=== PATIENT | female | born 1950 | race Caucasian/White ===

== ENCOUNTER 2023-08-27 05:28 | Emergency (ER) | payer MEDICARE, OTHER, SELFPAY ==
[2023-08-27] VITALS (30 sets, daily range): BP systolic 101–120; BP diastolic 51–60; PULSE 84–105; RESP 15–26; TEMP 37.6–38.2; O2SAT 93–98
--- NOTE | 2023-08-27 05:39 | DI.RAD.S_ITS ---
PROCEDURE: XR CHEST 1V INDICATIONS: cough, fever TECHNIQUE: One view of the chest was acquired. COMPARISON: None. FINDINGS: Surgical changes and devices: None. Lungs and pleura: Bibasilar atelectasis. No focal consolidation. No pleural effusions or pneumothorax. Mediastinum: Mediastinal contours appear normal. Heart size is normal. Bones and chest wall: No suspicious bony lesions. Overlying soft tissues appear unremarkable. IMPRESSION: No acute cardiopulmonary disease. 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 Dictated by: Marilee Aaron M.D. on 08/27/2023 at 7:55 Approved by: Marilee Aaron M.D. on 08/27/2023 at 7:56
--- NOTE | 2023-08-27 05:40 | ED_ITS ---
HPI - General Adult <Marcos Pompa DO - Last Filed: 08/27/23 23:25> General Chief complaint: Fever Stated complaint: chills, fever 102.5 Time Seen by Provider: 08/27/23 05:30 History of Present Illness HPI narrative: 72-year-old female nonsmoker with history of stroke and a relatively recent right total knee presents with a few weeks of episodic fever and chills. She states that more specifically she is been relatively persistently febrile for the past few days with occasional chills. She denies runny nose, sore throat but has had some cough and burning in her lungs. She denies any significant shortness of breath. She is had no chest pain, nausea, vomiting or diarrhea. She denies dysuria, frequency or urgency. She denies any pain and states that her knee feels great, denying any swelling, drainage or abnormal redness. Related Data Home Medications Medication Instructions Recorded Confirmed atorvastatin 40 mg tablet 40 mg PO DAILY 08/27/23 08/27/23 Previous Rx's Medication Instructions Recorded cephalexin 500 mg capsule 500 mg PO BID 7 days #14 caps 08/27/23 ondansetron 4 mg disintegrating 4 mg PO Q6H PRN nausea and 08/27/23 tablet vomiting #14 tabs Allergies Allergy/AdvReac Type Severity Reaction Status Date / Time amoxicillin Allergy Rash Verified 08/27/23 06:10 clavulanic acid Allergy Verified 08/27/23 06:07 [From Augmentin] codeine Allergy Nausea Verified 08/27/23 06:10 doxycycline Allergy Hives Verified 08/27/23 06:10 levofloxacin Allergy Joint Pain Verified 08/27/23 06:10 Sulfa (Sulfonamide Allergy ITCHING Verified 08/27/23 06:10 Antibiotics) Review of Systems <Marcos Pompa DO - Last Filed: 08/27/23 23:25> Review of Systems Narrative: GENERAL: See HPI HEENT: See HPI RESPIRATORY: See HPI CARDIOVASCULAR: Denies chest pain, palpitations, orthopnea, edema, GASTROINTESTINAL: Denies nausea, vomiting, abdominal pain, diarrhea, constipation, melena. : Denies dysuria, frequency, incontinence, hematuria, urinary retention. MUSCULOSKELETAL: denies weakness, joint pain, or bony pain SKIN: Denies rash, skin lesions, or other NEUROLOGIC: Denies weakness, headache, numbness, change in speech, confusion, seizures, incoordination. PSYCHIATRIC: No concerning psychosocial issues. 12 point review of systems is negative except for those stated above Patient History <Marcos Pompa DO - Last Filed: 08/27/23 23:25> Medical History (Updated 08/27/23 @ 11:28 by Tobin Lr DO) CVA (cerebral vascular accident) Surgical History (Updated 08/27/23 @ 11:28 by Tobin Lr DO) H/O: knee surgery Social History Smoking Status: Never smoker substance use type: does not use Exam <Marcos Pompa DO - Last Filed: 08/27/23 23:25> Narrative Exam Narrative: GENERAL: [72] year old patient appears stated age. Well-developed patient, in mild distress. HEAD: Atraumatic. Normocephalic. EYES: Pupils equal round and reactive. Extraocular motions intact. No scleral icterus. No injection or drainage. ENT: Nose without bleeding, purulent drainage. Throat without erythema, tonsillar hypertrophy or exudate. Airway patent. NECK: Trachea midline. Non tender CARDIOVASCULAR: Regular rate and rhythm without murmurs, gallops, or rubs. RESPIRATORY: Clear to auscultation. Breath sounds equal bilaterally. No wheezes, rales, or rhonchi. GASTROINTESTINAL: Abdomen soft, non-tender, nondistended. EXTREMITIES: No edema or joint tenderness. Incision on right knee clean, dry and intact, no swelling, redness, warmth BACK: Nontender without deformity or crepitance. No flank tenderness. NEURO: AOx3. SKIN: No rash or erythema of visible areas Initial Vital Signs Initial Vital Signs: Vital Signs Pulse Rate 105 H 08/27/23 05:40 Respiratory Rate 15 08/27/23 05:40 Pulse Oximetry 94 08/27/23 05:40 <Samuel Shelton DO - Last Filed: 08/27/23 11:09> Initial Vital Signs Initial Vital Signs: Vital Signs Pulse Rate 105 H 08/27/23 05:40 Respiratory Rate 15 08/27/23 05:40 Pulse Oximetry 94 08/27/23 05:40 Course <Marcos Pompa DO - Last Filed: 08/27/23 23:25> Orders Ordered: Discontinued Medications Acetaminophen (Acetaminophen 325 Mg Tablet) 975 mg PO NOW ONE Stop: 08/27/23 05:45 Last Admin: 08/27/23 05:53 Dose: 975 mg Documented By: Sodium Chloride (Normal Saline 0.9%) 1,000 mls @ 1,000 mls/hr IV BOLUS ONE Stop: 08/27/23 06:37 Last Infusion: 08/27/23 06:05 Dose: 0 mls/hr Documented By: Admin: 08/27/23 05:53 Dose: 1,000 mls/hr Documented By: Sodium Chloride (Normal Saline 0.9%) 1,875.15 mls @ 625.05 mls/hr 30 ml/kg infuse over 3 hr (1875.15 ml) IV NOW ONE Stop: 08/27/23 09:02 Last Infusion: 08/27/23 09:37 Dose: Infused Documented By: Admin: 08/27/23 06:09 Dose: 625.05 mls/hr Documented By: Ceftriaxone Sodium 2,000 mg/ (Sodium Chloride) 100 mls @ 200 mls/hr IV NOW ONE Stop: 08/27/23 06:09 Last Infusion: 08/27/23 07:08 Dose: Infused Documented By: Admin: 08/27/23 06:20 Dose: 200 mls/hr Documented By: Azithromycin 500 mg/ Dextrose 250 mls @ 250 mls/hr IV NOW ONE Stop: 08/27/23 07:18 Last Infusion: 08/27/23 09:06 Dose: Infused Documented By: AMAidan Admin: 08/27/23 07:42 Dose: 250 mls/hr Documented By: LEA Vital Signs Vital signs: Vital Signs - 8 hr 08/27/23 05:40 08/27/23 05:44 08/27/23 05:53 Temperature 100.7 F H 100.7 F H Pulse Rate 105 H 104 H Respiratory Rate 15 18 Blood Pressure 120/56 L Pulse Oximetry 94 98 Oxygen Delivery Method Room Air 08/27/23 06:00 08/27/23 06:23 08/27/23 06:23 Temperature Pulse Rate 100 H 99 H Respiratory Rate Blood Pressure 108/53 L Pulse Oximetry 97 97 Oxygen Delivery Method Room Air 08/27/23 06:30 08/27/23 06:30 08/27/23 06:52 Temperature Pulse Rate 96 H Respiratory Rate 21 Blood Pressure 101/51 L 105/52 L Pulse Oximetry 96 Oxygen Delivery Method 08/27/23 06:52 08/27/23 06:55 08/27/23 07:00 Temperature 99.7 F H Pulse Rate 93 H 87 Respiratory Rate 20 Blood Pressure Pulse Oximetry 94 93 Oxygen Delivery Method Room Air Room Air 08/27/23 07:00 08/27/23 07:30 08/27/23 07:30 Temperature Pulse Rate 89 Respiratory Rate 26 H Blood Pressure 105/53 L 113/56 L Pulse Oximetry 94 Oxygen Delivery Method 08/27/23 07:45 08/27/23 07:45 08/27/23 08:00 Temperature Pulse Rate 96 H 94 H Respiratory Rate 23 Blood Pressure 110/56 L Pulse Oximetry 95 95 Oxygen Delivery Method 08/27/23 08:00 08/27/23 08:15 08/27/23 08:15 Temperature Pulse Rate 91 H Respiratory Rate 20 Blood Pressure 109/52 L 109/54 L Pulse Oximetry 95 Oxygen Delivery Method 08/27/23 08:30 08/27/23 08:30 08/27/23 08:45 Temperature Pulse Rate 91 H Respiratory Rate 21 Blood Pressure 112/54 L 115/57 L Pulse Oximetry 95 Oxygen Delivery Method 08/27/23 08:45 08/27/23 09:00 08/27/23 09:00 Temperature Pulse Rate 88 89 Respiratory Rate 23 24 Blood Pressure 109/57 L Pulse Oximetry 95 96 Oxygen Delivery Method 08/27/23 09:17 08/27/23 09:17 08/27/23 09:30 Temperature Pulse Rate 93 H Respiratory Rate 25 H Blood Pressure 113/60 107/57 L Pulse Oximetry 97 Oxygen Delivery Method 08/27/23 09:30 08/27/23 09:45 08/27/23 09:45 Temperature Pulse Rate 87 86 Respiratory Rate 25 H 23 Blood Pressure 112/58 L Pulse Oximetry 95 95 Oxygen Delivery Method 08/27/23 10:00 08/27/23 10:00 08/27/23 10:15 Temperature Pulse Rate 84 Respiratory Rate 23 Blood Pressure 109/56 L 118/58 L Pulse Oximetry 95 Oxygen Delivery Method 08/27/23 10:15 08/27/23 10:30 08/27/23 10:30 Temperature Pulse Rate 86 84 Respiratory Rate 24 17 Blood Pressure 115/57 L Pulse Oximetry 95 96 Oxygen Delivery Method <Samuel Shelton DO - Last Filed: 08/27/23 11:09> Orders Ordered: Discontinued Medications Acetaminophen (Acetaminophen 325 Mg Tablet) 975 mg PO NOW ONE Stop: 08/27/23 05:45 Last Admin: 08/27/23 05:53 Dose: 975 mg Documented By: Sodium Chloride (Normal Saline 0.9%) 1,000 mls @ 1,000 mls/hr IV BOLUS ONE Stop: 08/27/23 06:37 Last Infusion: 08/27/23 06:05 Dose: 0 mls/hr Documented By: Admin: 08/27/23 05:53 Dose: 1,000 mls/hr Documented By: Sodium Chloride (Normal Saline 0.9%) 1,875.15 mls @ 625.05 mls/hr 30 ml/kg infuse over 3 hr (1875.15 ml) IV NOW ONE Stop: 08/27/23 09:02 Last Infusion: 08/27/23 09:37 Dose: Infused Documented By: Admin: 08/27/23 06:09 Dose: 625.05 mls/hr Documented By: Ceftriaxone Sodium 2,000 mg/ (Sodium Chloride) 100 mls @ 200 mls/hr IV NOW ONE Stop: 08/27/23 06:09 Last Infusion: 08/27/23 07:08 Dose: Infused Documented By: Admin: 08/27/23 06:20 Dose: 200 mls/hr Documented By: Azithromycin 500 mg/ Dextrose 250 mls @ 250 mls/hr IV NOW ONE Stop: 08/27/23 07:18 Last Infusion: 08/27/23 09:06 Dose: Infused Documented By: Admin: 08/27/23 07:42 Dose: 250 mls/hr Documented By: LEA Vital Signs Vital signs: Vital Signs - 8 hr 08/27/23 05:40 08/27/23 05:44 08/27/23 05:53 Temperature 100.7 F H 100.7 F H Pulse Rate 105 H 104 H Respiratory Rate 15 18 Blood Pressure 120/56 L Pulse Oximetry 94 98 Oxygen Delivery Method Room Air 08/27/23 06:00 08/27/23 06:23 08/27/23 06:23 Temperature Pulse Rate 100 H 99 H Respiratory Rate Blood Pressure 108/53 L Pulse Oximetry 97 97 Oxygen Delivery Method Room Air 08/27/23 06:30 08/27/23 06:30 08/27/23 06:52 Temperature Pulse Rate 96 H Respiratory Rate 21 Blood Pressure 101/51 L 105/52 L Pulse Oximetry 96 Oxygen Delivery Method 08/27/23 06:52 08/27/23 06:55 08/27/23 07:00 Temperature 99.7 F H Pulse Rate 93 H 87 Respiratory Rate 20 Blood Pressure Pulse Oximetry 94 93 Oxygen Delivery Method Room Air Room Air 08/27/23 07:00 08/27/23 07:30 08/27/23 07:30 Temperature Pulse Rate 89 Respiratory Rate 26 H Blood Pressure 105/53 L 113/56 L Pulse Oximetry 94 Oxygen Delivery Method 08/27/23 07:45 08/27/23 07:45 08/27/23 08:00 Temperature Pulse Rate 96 H 94 H Respiratory Rate 23 Blood Pressure 110/56 L Pulse Oximetry 95 95 Oxygen Delivery Method 08/27/23 08:00 08/27/23 08:15 08/27/23 08:15 Temperature Pulse Rate 91 H Respiratory Rate 20 Blood Pressure 109/52 L 109/54 L Pulse Oximetry 95 Oxygen Delivery Method 08/27/23 08:30 08/27/23 08:30 08/27/23 08:45 Temperature Pulse Rate 91 H Respiratory Rate 21 Blood Pressure 112/54 L 115/57 L Pulse Oximetry 95 Oxygen Delivery Method 08/27/23 08:45 08/27/23 09:00 08/27/23 09:00 Temperature Pulse Rate 88 89 Respiratory Rate 23 24 Blood Pressure 109/57 L Pulse Oximetry 95 96 Oxygen Delivery Method 08/27/23 09:17 08/27/23 09:17 08/27/23 09:30 Temperature Pulse Rate 93 H Respiratory Rate 25 H Blood Pressure 113/60 107/57 L Pulse Oximetry 97 Oxygen Delivery Method 08/27/23 09:30 08/27/23 09:45 08/27/23 09:45 Temperature Pulse Rate 87 86 Respiratory Rate 25 H 23 Blood Pressure 112/58 L Pulse Oximetry 95 95 Oxygen Delivery Method 08/27/23 10:00 08/27/23 10:00 08/27/23 10:15 Temperature Pulse Rate 84 Respiratory Rate 23 Blood Pressure 109/56 L 118/58 L Pulse Oximetry 95 Oxygen Delivery Method 08/27/23 10:15 08/27/23 10:30 08/27/23 10:30 Temperature Pulse Rate 86 84 Respiratory Rate 24 17 Blood Pressure 115/57 L Pulse Oximetry 95 96 Oxygen Delivery Method Medical Decision Making <Marcos Pompa, - Last Filed: 08/27/23 23:25> Lab Data 08/27/23 05:47 08/27/23 05:47 Labs: Lab Results 08/27/23 08/27/23 08/27/23 Range/Units 05:47 05:55 06:07 WBC 23.4 H (4.5-11.0) X10^3/uL RBC 3.44 L (4.0-5.2) X10^6/uL Hgb 10.7 L (12.0-16.0) g/dL Hct 32.6 L (36-46) % MCV 94.8 (80-100) fL MCH 31.2 (26-34) PG MCHC 32.9 (30-36) % RDW 14.1 (11.6-14.8) % Plt Count 436 H (150-400) X10^3/uL Neut % (Auto) 87.9 H (50-75) % Lymph % (Auto) 2.7 L (25-40) % [place] % (Auto) 8.6 (3-14) % Eos % (Auto) 0.0 L (2-4) % Baso % (Auto) 0.8 (0-2) % Neut # (Auto) 86039 H (7391-9315) /uL Lymph # (Auto) 600 L (0673-7198) /uL [place] # (Auto) 2000 H (0-900) /uL Eos # (Auto) 0 (0-450) /uL Baso # (Auto) 200 H (0-100) /uL D-Dimer 2463 H (<500) ng/ml Sodium 136 L (137-145) mmol/L Potassium 3.8 (3.4-5.1) mmol/L Chloride 103 (98-107) mmol/L Carbon Dioxide 28 (22-32) mmol/L BUN 25 H (7-17) mg/dL Creatinine 0.44 L (0.52-1.04) mg/dL Estimated GFR > 60 (>60) mL/min BUN/Creatinine Ratio 56.8 H (6-22) Glucose 117 H (80-110) mg/dL Lactate 1.6 (0.7-2.1) mmol/L Calcium 10.0 (8.4-10.2) mg/dL Total Bilirubin 1.1 (0.2-1.3) mg/dL AST 123 H (14-36) IU/L ALT 132 H (<35) IU/L Alkaline Phosphatase 224 H (38-126) U/L Total Creatine Kinase 24 L (30-135) U/L Troponin I < 0.012 (0.01-0.034) ng/mL NT-Pro-B Natriuret Pep 738 H (<125) pg/mL Total Protein 7.0 (6.3-8.2) g/dL Albumin 3.4 L (3.5-5.0) g/dL Globulin 3.6 (1.7-4.1) g/dL Albumin/Globulin Ratio 0.9 L (1.0-2.8) Procalcitonin 0.29 (<0.5) ng/mL Urine Color Yellow Urine Appearance Sl cloudy Urine pH 6.0 (4.5-8.0) Ur Specific [place] 1.015 (1.000-1.035) Urine Protein 2+ H (Negative) Urine Glucose (UA) Negative (Negative) g/dL Urine Ketones 1+ H (NEGATIVE) Urine Occult Blood 1+ H (Negative) Urine Nitrate Positive H (Negative) Urine Bilirubin Negative (NEGATIVE) Urine Urobilinogen 4.0 H (0.2) E.U./dL Ur Leukocyte Esterase 2+ H (NEGATIVE) Urine RBC 0-1/hpf (0-5/HPF) Urine WBC >100/hpf H (0-5/HPF) Ur Squamous Epith Cells 1-5 /hpf (0-5/HPF) Urine Bacteria Many (>30) H (None) Urine Mucus 3+ H (Negative) Ur Culture Indicated? Specimen cultured Chlamy pneumoniae PCR (Not Detect) Adenovirus (PCR) (Not Detect) B.parapertussis DNA PCR (Not Detecte) Coronavirus OC43 (PCR) (Not Detect) Coronavirus HKU1 (PCR) (Not Detect) Coronavirus 229E (PCR) (Not Detect) SARS-CoV-2 (PCR) Negative (Negative) Coronavirus NL63 (PCR) (Not Detect) Human Metapneumovir PCR (Not Detect) Influenza A (RT-PCR) Flu a negative (NEGATIVE) Influenza Type A (PCR) (Not Detect) Influenza B (RT-PCR) Flu b negative (NEGATIVE) Influenza Type B (PCR) (Not Detect) M. pneumoniae (PCR) (Not Detect) Parainfluenza 1 (PCR) (Not Detect) Parainfluenza 2 (PCR) (Not Detect) Parainfluenza 3 (PCR) (Not Detect) Parainfluenza 4 (PCR) (Not Detect) RSV (PCR) Negative (Negative) Entero/Rhino (PCR) (Not Detect) 08/27/23 Range/Units 10:44 WBC (4.5-11.0) X10^3/uL RBC (4.0-5.2) X10^6/uL Hgb (12.0-16.0) g/dL Hct (36-46) % MCV (80-100) fL MCH (26-34) PG MCHC (30-36) % RDW (11.6-14.8) % Plt Count (150-400) X10^3/uL Neut % (Auto) (50-75) % Lymph % (Auto) (25-40) % [place] % (Auto) (3-14) % Eos % (Auto) (2-4) % Baso % (Auto) (0-2) % Neut # (Auto) (8162-9933) /uL Lymph # (Auto) (3541-0515) /uL [place] # (Auto) (0-900) /uL Eos # (Auto) (0-450) /uL Baso # (Auto) (0-100) /uL D-Dimer (<500) ng/ml Sodium (137-145) mmol/L Potassium (3.4-5.1) mmol/L Chloride (98-107) mmol/L Carbon Dioxide (22-32) mmol/L BUN (7-17) mg/dL Creatinine (0.52-1.04) mg/dL Estimated GFR (>60) mL/min BUN/Creatinine Ratio (6-22) Glucose (80-110) mg/dL Lactate (0.7-2.1) mmol/L Calcium (8.4-10.2) mg/dL Total Bilirubin (0.2-1.3) mg/dL AST (14-36) IU/L ALT (<35) IU/L Alkaline Phosphatase (38-126) U/L Total Creatine Kinase (30-135) U/L Troponin I (0.01-0.034) ng/mL NT-Pro-B Natriuret Pep (<125) pg/mL Total Protein (6.3-8.2) g/dL Albumin (3.5-5.0) g/dL Globulin (1.7-4.1) g/dL Albumin/Globulin Ratio (1.0-2.8) Procalcitonin (<0.5) ng/mL Urine Color Urine Appearance Urine pH (4.5-8.0) Ur Specific [place] (1.000-1.035) Urine Protein (Negative) Urine Glucose (UA) (Negative) g/dL Urine Ketones (NEGATIVE) Urine Occult Blood (Negative) Urine Nitrate (Negative) Urine Bilirubin (NEGATIVE) Urine Urobilinogen (0.2) E.U./dL Ur Leukocyte Esterase (NEGATIVE) Urine RBC (0-5/HPF) Urine WBC (0-5/HPF) Ur Squamous Epith Cells (0-5/HPF) Urine Bacteria (None) Urine Mucus (Negative) Ur Culture Indicated? Chlamy pneumoniae PCR Not detected (Not Detect) Adenovirus (PCR) Not detected (Not Detect) B.parapertussis DNA PCR Not detected (Not Detecte) Coronavirus OC43 (PCR) Not detected (Not Detect) Coronavirus HKU1 (PCR) Not detected (Not Detect) Coronavirus 229E (PCR) Not detected (Not Detect) SARS-CoV-2 (PCR) Not detected (Negative) Coronavirus NL63 (PCR) Not detected (Not Detect) Human Metapneumovir PCR Not detected (Not Detect) Influenza A (RT-PCR) (NEGATIVE) Influenza Type A (PCR) Not detected (Not Detect) Influenza B (RT-PCR) (NEGATIVE) Influenza Type B (PCR) Not detected (Not Detect) M. pneumoniae (PCR) Not detected (Not Detect) Parainfluenza 1 (PCR) Not detected (Not Detect) Parainfluenza 2 (PCR) Not detected (Not Detect) Parainfluenza 3 (PCR) Not detected (Not Detect) Parainfluenza 4 (PCR) Not detected (Not Detect) RSV (PCR) Not detected (Negative) Entero/Rhino (PCR) Not detected (Not Detect) Urine Dip Bedside Urine Glucose Negative Bedside Urine Bilirubin - Negative Bedside Urine Ketone +/- 5 Urine Specific [place] 1.015 Bedside Urine Occult Blood ++ Bedside Urine pH 6 Bedside Urine Protein + 30 Bedside Urine Urobilinogen - Negative Bedside Urine Nitrite + Positive Bedside Urine Leukocytes ++ 125 Esterase Point of care testing: Urine Dip Bedside Urine Glucose Negative Bedside Urine Bilirubin - Negative Bedside Urine Ketone +/- 5 Urine Specific [place] 1.015 Bedside Urine Occult Blood ++ Bedside Urine pH 6 Bedside Urine Protein + 30 Bedside Urine Urobilinogen - Negative Bedside Urine Nitrite + Positive Bedside Urine Leukocytes ++ 125 Esterase MDM Narrative Medical decision making narrative: CC: 72-year-old female with fever, chills and cough Complicating co-morbidities: Age, prior stroke, right knee surgery 3 weeks ago Data collected from: Patient Medical records reviewed: Prior notes reviewed in our EMR, records obtained from [facility] General Differential considered, but not limited to: Infection from viral upper respiratory illness such as COVID or flu versus pneumonia versus pulmonary embolism versus urine versus postoperative infection versus other Exam documented above, pertinent findings include: Slightly tachycardic but regular, lungs clear, deep breath illicits cough, abdomen soft, right knee with well-healing incision and no signs of infection Lab Test results independently reviewed as above. Pertinent findings: White blood cells 23.4 with left shift, D-dimer 2463, primary electrolytes and renal function without significant abnormalities, lactate 1.6, AST 123, ALT 132, urine very convincing for infection with greater than 100 WBCs, 2+ leuk esterase, positive nitrate Independently reviewed EKG as above Imaging studies independently reviewed: Chest x-ray demonstrates no acute abnormality, CTA Chest [] Disposition: see below, along with detailed discharge instructions that have been reviewed with patient as well as indications for ED re-evaluation and additional outpatient follow up Dr shelton: Received turned over. Review patient's history and physical exam. Patient is tolerating oral intake. Did discuss the case with Dr. Lr who evaluated the patient here in the emergency department. We both agree that she less likely has a pneumonia more likely urinary tract infection. Ultrasound does not show definitive indication of pyelonephritis. Patient did receive antibiotics here in the ER. Patient would like to go home. Dr. Lr would like to send her home. Will discharge patient home with strict return precautions. <Samuel Cat, DO - Last Filed: 08/27/23 11:09> Lab Data Lab results reviewed: Yes I reviewed the patient's lab results. Labs: Lab Results 08/27/23 08/27/23 08/27/23 Range/Units 05:47 05:55 06:07 WBC 23.4 H (4.5-11.0) X10^3/uL RBC 3.44 L (4.0-5.2) X10^6/uL Hgb 10.7 L (12.0-16.0) g/dL Hct 32.6 L (36-46) % MCV 94.8 (80-100) fL MCH 31.2 (26-34) PG MCHC 32.9 (30-36) % RDW 14.1 (11.6-14.8) % Plt Count 436 H (150-400) X10^3/uL Neut % (Auto) 87.9 H (50-75) % Lymph % (Auto) 2.7 L (25-40) % [place] % (Auto) 8.6 (3-14) % Eos % (Auto) 0.0 L (2-4) % Baso % (Auto) 0.8 (0-2) % Neut # (Auto) 69594 H (9993-0947) /uL Lymph # (Auto) 600 L (3724-6654) /uL [place] # (Auto) 2000 H (0-900) /uL Eos # (Auto) 0 (0-450) /uL Baso # (Auto) 200 H (0-100) /uL D-Dimer 2463 H (<500) ng/ml Sodium 136 L (137-145) mmol/L Potassium 3.8 (3.4-5.1) mmol/L Chloride 103 (98-107) mmol/L Carbon Dioxide 28 (22-32) mmol/L BUN 25 H (7-17) mg/dL Creatinine 0.44 L (0.52-1.04) mg/dL Estimated GFR > 60 (>60) mL/min BUN/Creatinine Ratio 56.8 H (6-22) Glucose 117 H (80-110) mg/dL Lactate 1.6 (0.7-2.1) mmol/L Calcium 10.0 (8.4-10.2) mg/dL Total Bilirubin 1.1 (0.2-1.3) mg/dL AST 123 H (14-36) IU/L ALT 132 H (<35) IU/L Alkaline Phosphatase 224 H (38-126) U/L Total Creatine Kinase 24 L (30-135) U/L Troponin I < 0.012 (0.01-0.034) ng/mL NT-Pro-B Natriuret Pep 738 H (<125) pg/mL Total Protein 7.0 (6.3-8.2) g/dL Albumin 3.4 L (3.5-5.0) g/dL Globulin 3.6 (1.7-4.1) g/dL Albumin/Globulin Ratio 0.9 L (1.0-2.8) Procalcitonin 0.29 (<0.5) ng/mL Urine Color Yellow Urine Appearance Sl cloudy Urine pH 6.0 (4.5-8.0) Ur Specific [place] 1.015 (1.000-1.035) Urine Protein 2+ H (Negative) Urine Glucose (UA) Negative (Negative) g/dL Urine Ketones 1+ H (NEGATIVE) Urine Occult Blood 1+ H (Negative) Urine Nitrate Positive H (Negative) Urine Bilirubin Negative (NEGATIVE) Urine Urobilinogen 4.0 H (0.2) E.U./dL Ur Leukocyte Esterase 2+ H (NEGATIVE) Urine RBC 0-1/hpf (0-5/HPF) Urine WBC >100/hpf H (0-5/HPF) Ur Squamous Epith Cells 1-5 /hpf (0-5/HPF) Urine Bacteria Many (>30) H (None) Urine Mucus 3+ H (Negative) Ur Culture Indicated? Specimen cultured Chlamy pneumoniae PCR (Not Detect) Adenovirus (PCR) (Not Detect) B.parapertussis DNA PCR (Not Detecte) Coronavirus OC43 (PCR) (Not Detect) Coronavirus HKU1 (PCR) (Not Detect) Coronavirus 229E (PCR) (Not Detect) SARS-CoV-2 (PCR) Negative (Negative) Coronavirus NL63 (PCR) (Not Detect) Human Metapneumovir PCR (Not Detect) Influenza A (RT-PCR) Flu a negative (NEGATIVE) Influenza Type A (PCR) (Not Detect) Influenza B (RT-PCR) Flu b negative (NEGATIVE) Influenza Type B (PCR) (Not Detect) M. pneumoniae (PCR) (Not Detect) Parainfluenza 1 (PCR) (Not Detect) Parainfluenza 2 (PCR) (Not Detect) Parainfluenza 3 (PCR) (Not Detect) Parainfluenza 4 (PCR) (Not Detect) RSV (PCR) Negative (Negative) Entero/Rhino (PCR) (Not Detect) 08/27/23 Range/Units 10:44 WBC (4.5-11.0) X10^3/uL RBC (4.0-5.2) X10^6/uL Hgb (12.0-16.0) g/dL Hct (36-46) % MCV (80-100) fL MCH (26-34) PG MCHC (30-36) % RDW (11.6-14.8) % Plt Count (150-400) X10^3/uL Neut % (Auto) (50-75) % Lymph % (Auto) (25-40) % [place] % (Auto) (3-14) % Eos % (Auto) (2-4) % Baso % (Auto) (0-2) % Neut # (Auto) (3954-6604) /uL Lymph # (Auto) (6596-6362) /uL [place] # (Auto) (0-900) /uL Eos # (Auto) (0-450) /uL Baso # (Auto) (0-100) /uL D-Dimer (<500) ng/ml Sodium (137-145) mmol/L Potassium (3.4-5.1) mmol/L Chloride (98-107) mmol/L Carbon Dioxide (22-32) mmol/L BUN (7-17) mg/dL Creatinine (0.52-1.04) mg/dL Estimated GFR (>60) mL/min BUN/Creatinine Ratio (6-22) Glucose (80-110) mg/dL Lactate (0.7-2.1) mmol/L Calcium (8.4-10.2) mg/dL Total Bilirubin (0.2-1.3) mg/dL AST (14-36) IU/L ALT (<35) IU/L Alkaline Phosphatase (38-126) U/L Total Creatine Kinase (30-135) U/L Troponin I (0.01-0.034) ng/mL NT-Pro-B Natriuret Pep (<125) pg/mL Total Protein (6.3-8.2) g/dL Albumin (3.5-5.0) g/dL Globulin (1.7-4.1) g/dL Albumin/Globulin Ratio (1.0-2.8) Procalcitonin (<0.5) ng/mL Urine Color Urine Appearance Urine pH (4.5-8.0) Ur Specific [place] (1.000-1.035) Urine Protein (Negative) Urine Glucose (UA) (Negative) g/dL Urine Ketones (NEGATIVE) Urine Occult Blood (Negative) Urine Nitrate (Negative) Urine Bilirubin (NEGATIVE) Urine Urobilinogen (0.2) E.U./dL Ur Leukocyte Esterase (NEGATIVE) Urine RBC (0-5/HPF) Urine WBC (0-5/HPF) Ur Squamous Epith Cells (0-5/HPF) Urine Bacteria (None) Urine Mucus (Negative) Ur Culture Indicated? Chlamy pneumoniae PCR Not detected (Not Detect) Adenovirus (PCR) Not detected (Not Detect) B.parapertussis DNA PCR Not detected (Not Detecte) Coronavirus OC43 (PCR) Not detected (Not Detect) Coronavirus HKU1 (PCR) Not detected (Not Detect) Coronavirus 229E (PCR) Not detected (Not Detect) SARS-CoV-2 (PCR) Not detected (Negative) Coronavirus NL63 (PCR) Not detected (Not Detect) Human Metapneumovir PCR Not detected (Not Detect) Influenza A (RT-PCR) (NEGATIVE) Influenza Type A (PCR) Not detected (Not Detect) Influenza B (RT-PCR) (NEGATIVE) Influenza Type B (PCR) Not detected (Not Detect) M. pneumoniae (PCR) Not detected (Not Detect) Parainfluenza 1 (PCR) Not detected (Not Detect) Parainfluenza 2 (PCR) Not detected (Not Detect) Parainfluenza 3 (PCR) Not detected (Not Detect) Parainfluenza 4 (PCR) Not detected (Not Detect) RSV (PCR) Not detected (Negative) Entero/Rhino (PCR) Not detected (Not Detect) Urine Dip Bedside Urine Glucose Negative Bedside Urine Bilirubin - Negative Bedside Urine Ketone +/- 5 Urine Specific [place] 1.015 Bedside Urine Occult Blood ++ Bedside Urine pH 6 Bedside Urine Protein + 30 Bedside Urine Urobilinogen - Negative Bedside Urine Nitrite + Positive Bedside Urine Leukocytes ++ 125 Esterase Point of care testing: Urine Dip Bedside Urine Glucose Negative Bedside Urine Bilirubin - Negative Bedside Urine Ketone +/- 5 Urine Specific [place] 1.015 Bedside Urine Occult Blood ++ Bedside Urine pH 6 Bedside Urine Protein + 30 Bedside Urine Urobilinogen - Negative Bedside Urine Nitrite + Positive Bedside Urine Leukocytes ++ 125 Esterase MDM Narrative Medical decision making narrative: CC: 72-year-old female with fever, chills and cough Complicating co-morbidities: Age, prior stroke, right knee surgery 3 weeks ago Data collected from: Patient Medical records reviewed: Prior notes reviewed in our EMR, records obtained from [facility] General Differential considered, but not limited to: Infection from viral upper respiratory illness such as COVID or flu versus pneumonia versus pulmonary embolism versus urine versus postoperative infection versus other Exam documented above, pertinent findings include: Slightly tachycardic but regular, lungs clear, deep breath illicits cough, abdomen soft, right knee with well-healing incision and no signs of infection Lab Test results independently reviewed as above. Pertinent findings: White blood cells 23.4 with left shift, D-dimer 2463, primary electrolytes and renal function without significant abnormalities, lactate 1.6, AST 123, ALT 132, urine very convincing for infection with greater than 100 WBCs, 2+ leuk esterase, positive nitrate Independently reviewed EKG as above Imaging studies independently reviewed: Chest x-ray demonstrates no acute abnormality, CTA Chest [] Scores Used: MIPS Elements: Consultations: Treatments: Re-evaluations: Discussion: Disposition: see below, along with detailed discharge instructions that have been reviewed with patient as well as indications for ED re-evaluation and additional outpatient follow up Dr shelton: Received turned over. Review patient's history and physical exam. Patient is tolerating oral intake. Did discuss the case with Dr. Lr who evaluated the patient here in the emergency department. We both agree that she less likely has a pneumonia more likely urinary tract infection. Ultrasound does not show definitive indication of pyelonephritis. Patient did receive antibiotics here in the ER. Patient would like to go home. Dr. Lr would like to send her home. Will discharge patient home with strict return precautions. Discharge Plan Departure Patient Disposition: Home Clinical Impression: Urinary tract infection Qualifiers: Urinary tract infection type: site unspecified Hematuria presence: with hematuria Qualified Code(s): N39.0 - Urinary tract infection, site not specified Instructions: DI for Urinary Tract Infection (UTI) Activity Restrictions/Additional Instructions: I do recommend that you take all of the medications as directed. Keep all of your scheduled medical appointments. Return to the emergency department for new or worsening symptoms. Prescriptions: New cephalexin 500 mg capsule 500 mg PO BID 7 Days Qty: 14 0RF ondansetron 4 mg tablet,disintegrating 4 mg PO Q6H PRN (Reason: nausea and vomiting) Qty: 14 0RF No Action atorvastatin 40 mg tablet 40 mg PO DAILY Stand Alone Forms: Patient Portal/API
[2023-08-27] MEDS: ACETAMINOPHEN 325 MG TABLET 975 MG PO (05:53)
[2023-08-27] MEDS: SODIUM CHLORIDE 0.9% 1,000 ML 1000 ML IV (05:53)
[2023-08-27 05:59] LABS: Add Manual Diff / Slide Review NO; Basophils Absolute Auto 200 /uL (0-100); Basophils Percent Auto 0.8 % (0-2); Eosinophils Absolute Auto 0 /uL (0-450); Hematocrit 32.6 % (36-46); Hemoglobin 10.7 g/dL (12.0-16.0); Lymphocytes Absolute Auto 600 /uL (1100-4500); Lymphocytes Percent Auto 2.7 % (25-40); Mean Corpuscular HGB Conc 32.9 % (30-36); Mean Corpuscular Hemoglobin 31.2 PG (26-34); Mean Corpuscular Volume 94.8 fL (80-100); Monocytes Absolute Auto 2000 /uL (0-900); Monocytes Percent Auto 8.6 % (3-14); Neutrophils Absolute Auto 20500 /uL (1500-7000); Neutrophils Percent Auto 87.9 % (50-75); Platelet Count 436 X10^3/uL (150-400); Red Blood Cell Count 3.44 X10^6/uL (4.0-5.2); Red Cell Distribution Width 14.1 % (11.6-14.8); White Blood Cell Count 23.4 X10^3/uL (4.5-11.0)
[2023-08-27] MEDS: SODIUM CHLORIDE 0.9% 625.05 ML IV (06:09)
[2023-08-27 06:11] LABS: D Dimer 2463 ng/ml (<500)
[2023-08-27 06:13] LABS: Lactate (Lactic Acid) 1.6 mmol/L (0.7-2.1)
[2023-08-27 06:14] LABS: Alanine Aminotransferase 132 IU/L (<35); Albumin 3.4 g/dL (3.5-5.0); Albumin Globulin Ratio 0.9 (1.0-2.8); BUN Creatinine Ratio 56.8 (6-22); Bilirubin Total 1.1 mg/dL (0.2-1.3); Blood Urea Nitrogen 25 mg/dL (7-17); Carbon Dioxide 28 mmol/L (22-32); Chloride 103 mmol/L (98-107); Estimated Glomerular Filt Rate > 60 mL/min (>60); Globulin 3.6 g/dL (1.7-4.1); Glucose 117 mg/dL (80-110); HEMOLYSIS 73 (0-50); Sodium 136 mmol/L (137-145)
[2023-08-27 06:17] LABS: Alkaline Phosphatase 224 U/L (38-126); Aspartate Aminotransferase 123 IU/L (14-36); Potassium 3.8 mmol/L (3.4-5.1)
[2023-08-27] MEDS: cefTRIAXone 2,000 MG in SODIUM CHLORIDE 0.9% 100 ML 200 MG IV (06:20)
[2023-08-27 06:21] LABS: Appearance Urine UA SL CLOUDY; Bilirubin Urine UA NEGATIVE (NEGATIVE); Color Urine UA YELLOW; Glucose Urine UA NEGATIVE (Negative); Ketones Urine UA 1+ (NEGATIVE); Leukocyte Esterase Urine UA 2+ (NEGATIVE); Nitrite Urine UA POSITIVE (Negative); Occult Blood Urine UA 1+ (Negative); Protein Urine UA 2+ (Negative); Specific Gravity Urine UA 1.015 (1.000-1.035)
[2023-08-27 06:24] LABS: Bacteria Urine Many (>30); Culture Indicated Urine Specimen Cultured; Mucus Urine 3+ (Negative); RBC Urine 0-1/HPF (0-5/HPF); Squamous Epithelial Cell Urine 1-5 /HPF (0-5/HPF); WBC Urine >100/HPF (0-5/HPF)
--- NOTE | 2023-08-27 06:28 | DI.CT.S_ITS ---
PROCEDURE: CT ANGIO CHEST PE PROTOCOL INDICATIONS: cough, fever, recent surgery, critical Dimer TECHNIQUE: After the administration of intravenous contrast, 2 mm thick sections acquired from the pulmonary apices to the posterior costophrenic angles. 3-dimensional maximum intensity projection (MIP) coronal and sagittal reformats were then acquired through the thorax. For radiation dose reduction, the following was used: automated exposure control, adjustment of mA and/or kV according to patient size. COMPARISON: [facility], CR, XR CHEST 1V, 08/27/2023, 5:37. FINDINGS: Image quality: Excellent. Pulmonary arteries: Pulmonary arteries are normal in size, and demonstrate no intraluminal filling defects to suggest central pulmonary embolism. Lungs and pleura: Mild bilateral ground-glass infiltrates with mosaic attenuation. Right middle lobe, lingula and right lower lobe discoid atelectasis. No pleural effusions or pneumothorax. Central and peripheral airways are patent. Mediastinum: Heart size is normal, without pericardial effusion. No mediastinal or hilar adenopathy. Thoracic aorta is normal in caliber and enhancement. Esophagus is normal in caliber, without hiatal hernia. Bones and chest wall: No suspicious bony lesions. Ribs and thoracic spine appear intact throughout. Thyroid gland is normal. No axillary or supraclavicular adenopathy. Abdomen: Visualized upper abdominal solid organs appear normal in the early arterial phase of enhancement. Suspect parapelvic left renal cysts. IMPRESSION: 1. No evidence for pulmonary embolism. 2. Bilateral ground-glass infiltrates with mosaic attenuation. Differential diagnoses are pneumonitis, pulmonary edema and small airway disease. 3. Atelectasis in right middle lobe, lingula and right lower lobe. 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 Dictated by: Marilee Aaron M.D. on 08/27/2023 at 7:45 Approved by: Marilee Aaron M.D. on 08/27/2023 at 7:55
[2023-08-27 06:30] LABS: Procalcitonin 0.29 ng/mL (<0.5)
[2023-08-27 06:36] LABS: Influenza A - CEPHEID Flu A NEGATIVE (NEGATIVE); Influenza B - CEPHEID Flu B NEGATIVE (NEGATIVE); Respiratory Syncytial Virus Negative (Negative)
[2023-08-27 06:40] LABS: COVID-19 CEPHEID 4-PLEX PCR Negative (Negative)
[2023-08-27 06:44] LABS: Creatine Kinase 24 U/L (30-135)
[2023-08-27 06:57] LABS: NT-proBNP (BNP-Adult 18+) 738 pg/mL (<125); Troponin I < 0.012 ng/mL (0.01-0.034)
--- NOTE | 2023-08-27 07:25 | DI.US.S_ITS ---
PROCEDURE: US ABDOMEN COMPLETE INDICATIONS: UROSEPSIS, ELEVATED TRANSAMINASES TECHNIQUE: Real-time scanning was performed of the abdominal and retroperitoneal organs, with image documentation. COMPARISON: None. FINDINGS: Liver: Liver is normal in size. There is a focus of decreased echogenicity adjacent to the medial aspect of the posterior right lobe measuring approximately 8 mm. Gallbladder: No stones. Gallbladder wall is thickened measuring 4.2 mm. Biliary ducts: Intrahepatic bile ducts are non-dilated. Extrahepatic bile duct caliber measures 4.7 mm. Normal is 6-7 mm or less in diameter, or 10 mm or less post-cholecystectomy. Pancreas: Visualized portions of the pancreas are sonographically normal. Spleen: Spleen is normal in size and homogeneous in echotexture. Kidneys: Kidneys are normal in size and echotexture. Right kidney measures 10.6 cm long; left kidney measures 13.1 cm long. No hydronephrosis or nephrolithiasis. No solid masses. Simple left parapelvic cyst. Aorta: Visualized aorta is normal in caliber at less than 3 cm. Iliacs: Proximal common iliac arteries are normal in caliber at less than 2.5 cm. IVC: Intrahepatic inferior vena cava is patent. Miscellaneous: No free abdominal fluid. IMPRESSION: Thickened gallbladder wall which could be secondary to NPO status. No stones are identified. If concern exists for gallbladder pathology, repeat limited gallbladder ultrasound is recommended with NPO state. Subcentimeter focus of decreased echogenicity adjacent to the liver suspected to represent exophytic hepatic simple cyst. Dictated by: Nia Goss M.D. on 08/27/2023 at 10:38 Approved by: Nia Goss M.D. on 08/27/2023 at 11:06
[2023-08-27] MEDS: AZITHROMYCIN 500 MG in DEXTROSE 5% IN WATER 250 ML 250 MG IV (07:42)
--- NOTE | 2023-08-27 07:46 | PC.NURSE ---
jewelry designer at bedside for u/s, at bedside.
--- NOTE | 2023-08-27 11:27 | P.CONS_ITS ---
History of Present Illness Consult details Date Patient Seen: 08/27/23 Time Patient Seen: 11:27 Chief complaint: chills, fever 102.5 Narrative: 72 year old female with PMH of prior CVA with reported residual L sided deficits, 3 weeks ago had a right knee replacement who presents with waxing and waning fever at home. Urinary frequency for the past few weeks, some dysuria. Symptoms started a few days after her knee surgery, she is unsure if she had a beckford catheter or not placed at that time and records are not available for review. She has had some nausea but no vomiting. No diarrhea, back pain or abdominal pain currently. Denies chest pain or shortness of breath. She has a chronic cough which is unchanged recently and relates this to allergies to cats and mold which she states are in her home. PSI 60, WBC 23 but no vital sign abnormalities other than low grade fever at 100.7. Labs were otherwise unremarkable except for mildly elevated transaminase levels. She was not on supplemental oxygen. PSI score was 60, or class II. She was counseled on risks and benefits of discharge home or continued observation. Patient elected for discharge home. Meds Home Medications and Allergies Home Medications Medication Instructions Recorded Confirmed Type atorvastatin 40 mg tablet 40 mg PO DAILY 08/27/23 08/27/23 History cephalexin 500 mg capsule 500 mg PO BID 7 days #14 caps 08/27/23 Rx ondansetron 4 mg disintegrating 4 mg PO Q6H PRN nausea and 08/27/23 Rx tablet vomiting #14 tabs Allergies Allergy/AdvReac Type Severity Reaction Status Date / Time amoxicillin Allergy Rash Verified 08/27/23 06:10 clavulanic acid Allergy Verified 08/27/23 06:07 [From Augmentin] codeine Allergy Nausea Verified 08/27/23 06:10 doxycycline Allergy Hives Verified 08/27/23 06:10 levofloxacin Allergy Joint Pain Verified 08/27/23 06:10 Sulfa (Sulfonamide Allergy ITCHING Verified 08/27/23 06:10 Antibiotics) Review of Systems Review of Systems Narrative: All other systems reviewed with the patient and are negative unless otherwise stated. Exam Vital Signs (past 8 hours): - 08/27/23 05:40 08/27/23 05:44 08/27/23 05:53 Temperature 100.7 F H 100.7 F H Pulse Rate 105 H 104 H Respiratory Rate 15 18 Blood Pressure 120/56 L Pulse Oximetry 94 98 Oxygen Delivery Method Room Air 08/27/23 06:00 08/27/23 06:23 08/27/23 06:23 Temperature Pulse Rate 100 H 99 H Respiratory Rate Blood Pressure 108/53 L Pulse Oximetry 97 97 Oxygen Delivery Method Room Air 08/27/23 06:30 08/27/23 06:30 08/27/23 06:52 Temperature Pulse Rate 96 H Respiratory Rate 21 Blood Pressure 101/51 L 105/52 L Pulse Oximetry 96 Oxygen Delivery Method 08/27/23 06:52 08/27/23 06:55 08/27/23 07:00 Temperature 99.7 F H Pulse Rate 93 H 87 Respiratory Rate 20 Blood Pressure Pulse Oximetry 94 93 Oxygen Delivery Method Room Air Room Air 08/27/23 07:00 08/27/23 07:30 08/27/23 07:30 Temperature Pulse Rate 89 Respiratory Rate 26 H Blood Pressure 105/53 L 113/56 L Pulse Oximetry 94 Oxygen Delivery Method 08/27/23 07:45 08/27/23 07:45 08/27/23 08:00 Temperature Pulse Rate 96 H 94 H Respiratory Rate 23 Blood Pressure 110/56 L Pulse Oximetry 95 95 Oxygen Delivery Method 08/27/23 08:00 08/27/23 08:15 08/27/23 08:15 Temperature Pulse Rate 91 H Respiratory Rate 20 Blood Pressure 109/52 L 109/54 L Pulse Oximetry 95 Oxygen Delivery Method 08/27/23 08:30 08/27/23 08:30 08/27/23 08:45 Temperature Pulse Rate 91 H Respiratory Rate 21 Blood Pressure 112/54 L 115/57 L Pulse Oximetry 95 Oxygen Delivery Method 08/27/23 08:45 08/27/23 09:00 08/27/23 09:00 Temperature Pulse Rate 88 89 Respiratory Rate 23 24 Blood Pressure 109/57 L Pulse Oximetry 95 96 Oxygen Delivery Method 08/27/23 09:17 08/27/23 09:17 08/27/23 09:30 Temperature Pulse Rate 93 H Respiratory Rate 25 H Blood Pressure 113/60 107/57 L Pulse Oximetry 97 Oxygen Delivery Method 08/27/23 09:30 08/27/23 09:45 08/27/23 09:45 Temperature Pulse Rate 87 86 Respiratory Rate 25 H 23 Blood Pressure 112/58 L Pulse Oximetry 95 95 Oxygen Delivery Method 08/27/23 10:00 08/27/23 10:00 08/27/23 10:15 Temperature Pulse Rate 84 Respiratory Rate 23 Blood Pressure 109/56 L 118/58 L Pulse Oximetry 95 Oxygen Delivery Method 08/27/23 10:15 08/27/23 10:30 08/27/23 10:30 Temperature Pulse Rate 86 84 Respiratory Rate 24 17 Blood Pressure 115/57 L Pulse Oximetry 95 96 Oxygen Delivery Method 08/27/23 10:45 08/27/23 10:45 08/27/23 11:00 Temperature Pulse Rate 86 Respiratory Rate 21 Blood Pressure 112/57 L 112/59 L Pulse Oximetry 96 Oxygen Delivery Method 08/27/23 11:00 08/27/23 11:15 08/27/23 11:15 Temperature Pulse Rate 87 87 Respiratory Rate 23 23 Blood Pressure 105/52 L Pulse Oximetry 97 95 Oxygen Delivery Method Oxygen Delivery Method Room Air Narrative Exam Narrative: General:? Patient is well developed and well nourished, in no distress at this time. HEENT:? Normocephalic, atraumatic, extraocular muscles intact, oral pharynx is clear and mucous membranes are moist. Neck: supple and symmetric, trachea is midline, no cervical adenopathy. Negative for JVD Chest:? Normal AP diameter and contour without kyphoscoliosis, no tachypnea, equal chest rise bilaterally. Lungs:? CTA b/l no wheezing rhonchi or rales. Cardio:?RRR no m/r/g. Abdomen: S NT ND. No CVA tenderness. Musculoskeletal:? Muscle strength and tone are equal within normal limits, no deformity. Extremities: No edema or joint effusions. No cyanosis or clubbing. Skin:? Pale,? Warm to touch,dry and intact without rashes, ulcerations or petechiae.? Neuro:? Alert and orientated x3,? sensation to touch intact in all extremities, no gross deficits noted of cranial nerves. Psych:? Patient has a well-kept appearance, appropriate affect, mental status attitude thought context and judgment are appropriate for age. Objective ECG Impression: normal sinus rhythm without acute ischemic changes as interpreted by me. Labs 08/27/23 05:47 08/27/23 05:47 Labs: Laboratory Results - last 24 hr 08/27/23 08/27/23 08/27/23 05:47 05:55 06:07 WBC 23.4 H RBC 3.44 L Hgb 10.7 L Hct 32.6 L MCV 94.8 MCH 31.2 MCHC 32.9 RDW 14.1 Plt Count 436 H Neut % (Auto) 87.9 H Lymph % (Auto) 2.7 L [place] % (Auto) 8.6 Eos % (Auto) 0.0 L Baso % (Auto) 0.8 Neut # (Auto) 15745 H Lymph # (Auto) 600 L [place] # (Auto) 2000 H Eos # (Auto) 0 Baso # (Auto) 200 H D-Dimer 2463 H Sodium 136 L Potassium 3.8 Chloride 103 Carbon Dioxide 28 BUN 25 H Creatinine 0.44 L Estimated GFR > 60 BUN/Creatinine Ratio 56.8 H Glucose 117 H Lactate 1.6 Calcium 10.0 Total Bilirubin 1.1 AST 123 H ALT 132 H Alkaline Phosphatase 224 H Total Creatine Kinase 24 L Troponin I < 0.012 NT-Pro-B Natriuret Pep 738 H Total Protein 7.0 Albumin 3.4 L Globulin 3.6 Albumin/Globulin Ratio 0.9 L Procalcitonin 0.29 Urine Color Yellow Urine Appearance Sl cloudy Urine pH 6.0 Ur Specific [place] 1.015 Urine Protein 2+ H Urine Glucose (UA) Negative Urine Ketones 1+ H Urine Occult Blood 1+ H Urine Nitrate Positive H Urine Bilirubin Negative Urine Urobilinogen 4.0 H Ur Leukocyte Esterase 2+ H Urine RBC 0-1/hpf Urine WBC >100/hpf H Ur Squamous Epith Cells 1-5 /hpf Urine Bacteria Many (>30) H Urine Mucus 3+ H Ur Culture Indicated? Specimen cultured SARS-CoV-2 (PCR) Negative Influenza A (RT-PCR) Flu a negative Influenza B (RT-PCR) Flu b negative RSV (PCR) Negative [facility] Medical History (Updated 08/27/23 @ 11:28 by Tobin Lr DO) CVA (cerebral vascular accident) Surgical History (Updated 08/27/23 @ 11:28 by Tobin Lr DO) H/O: knee surgery Tobacco & Substance Use Smoking Status: Never smoker substance use type: does not use Assessment & Plan Assessment & Plan narrative: 1. Acute cystitis - though notable elevation in her WBC count, patient has remained hemodynamically stable. SOFA score is 0 and no ongoing indication of sepsis. - received ceftriaxone and azithromycin in the ER. - reports augmentin allergy, along with fluoroquinolone allergy but tolerated ceftriaxone. - agree with discharge on cephalexin for 7 days. - abdominal imaging with GBWT but no RUQ pain or symptoms. Imaging consistent with renal cysts for which outpatient follow up is recommended with primary care provider. - she is currently eating and tolerating liquids without nausea or pain. 2. Prior CVA - continue home medications, no obvious deficits on my exam today. 3. Possible pneumonia, suspect viral - continue above antibiotics on discharge. More suspect viral etiology with mild ground glass opacities on imaging. - PSI score of 60, or class II risk, okay for outpatient trial of therapies. 4. Elevated transaminase level - no RUQ pain and ultrasound with GBWT. Given lack of symptoms currently outpatient follow up is recommended with primary care to repeat testing. Additional history obtained from the ER provider. Discussed the risks and benefits of continued observation in the hosptial or discharge home, and after discussion patient wished to discharge home. Code: Full, surrogate is patient's spouse I have utilized all available immediate resources to obtain, update, or review the patient's current medications.
[2023-08-27 11:51] LABS: Adenovirus Not Detected (Not Detect); B. parapertussis Not Detected (Not Detecte); Bordetella pertussis Not Detected (Not Detect); Chlamydophila pneumoniae Not Detected (Not Detect); Coronavirus 229E Not Detected (Not Detect); Coronavirus HKU1 Not Detected (Not Detect); Coronavirus NL 63 Not Detected (Not Detect); Coronavirus OC43 Not Detected (Not Detect); Human Metapneumovirus Not Detected (Not Detect); Human Rhinovirus/Enterovirus Not Detected (Not Detect); Influenza A Not Detected (Not Detect); Influenza B Not Detected (Not Detect); Mycoplasma pneumoniae Not Detected (Not Detect); Parainfluenza Virus 1 Not Detected (Not Detect); Parainfluenza Virus 2 Not Detected (Not Detect); Parainfluenza Virus 3 Not Detected (Not Detect); Parainfluenza Virus 4 Not Detected (Not Detect); Respiratory Syncytial Virus Not Detected (Not Detect); SARS- CoV-2 Not Detected (Not Detecte)
== END 2023-08-27 12:55 | disposition home or self-care (01) ==
PROVIDERS: Emergency Medicine; Internal Medicine; Emergency Provider Emergency Medicine
DX: N39.0 Urinary tract infection, site not specified (principal); Z20.822 Contact with and (suspected) exposure to COVID-19
CPT/HCPCS: 0241U; 36415; 51798; 71045; 71275; 76700; 80053; 81001; 81003; 82550; 83605; 83880; 84145; 84484; 85025; 85379; 87040; 87077; 87086; 87186; 87633; 96365; 96367; 99284; J0696